=== PATIENT | male | born 1950 | race Caucasian/White ===

== ENCOUNTER 2023-10-13 17:29 | Inpatient (IN) | payer OTHER ==
[2023-10-13 17:57] VITALS: BMI 18.1
[2023-10-13 19:33] LABS: Hematocrit 22.4 % (38.8-50.0); Hemoglobin 7.1 g/dL (13.5-17.5); Platelet Count 245 10x3/uL (150-450)
[2023-10-13] MEDS ORDERED: Ondansetron PF 4 MG/2 ML Vial IVP PRN (19:34)
[2023-10-13 19:43] LABS: Iron 27 ug/dL (65-175); Iron Binding Capacity, Total 320 mcg/dL (261-462)
[2023-10-13] MEDS: Famotidine/PF 20 mg/2ml Vial SLOW IVP SCH (21:17)
[2023-10-13] MEDS: Terazosin HCl 1 MG CAP PO SCH (21:18)
[2023-10-13] MEDS: Atorvastatin Calcium 40 MG TAB PO SCH (21:44)
[2023-10-14 02:28] LABS: #Basophils 0.02 10x3/uL (0.0-0.2); #Eosinphils 0.14 10x3/uL (0.0-0.5); #Neutrophils 4.78 10x3/uL (1.5-8.4); %Basophils 0.3 % (0.0-2.0); %Lymphocytes 14.6 % (18.0-47.0); %Monocytes 14.3 % (0.0-10.0); %Neutrophils 68.4 % (40.0-75.0); Hematocrit 25.3 % (38.8-50.0); Hemoglobin 8.2 g/dL (13.5-17.5); Mean Corpuscular HGB CONC 32.4 g/dL (32.0-36.0); Mean Corpuscular Hemoglobin 28.9 pg (27.0-33.0); Mean Corpuscular Volume 89.1 fL (81.2-95.1); Mean Platelet Volume 8.7 fL (7.4-10.4); Platelet Count 210 10x3/uL (150-450); RBC Distribution Width 14.6 % (11.5-14.5); Red Blood Cell (RBC) Count 2.84 10x6/uL (4.32-5.72)
[2023-10-14 02:35] LABS: INR-International Normal Ratio 1.4; PTT 28.8 sec (22.0-33.0); Prothrombin Time 15.1 sec (9.5-12.1)
[2023-10-14 02:40] LABS: Anion Gap 13 mmol/L (10-20); BUN (Urea Nitrogen) 32 mg/dL (8.4-25.7); Calc. Creatinine Clearance 33 mL/min (70-130); Calcium 8.4 mg/dL (7.8-10.44); Carbon Dioxide 27 mmol/L (23-31); Chloride 101 mmol/L (98-107); Estimated GFR 46; Glucose 84 mg/dL (83-110); Potassium 4.7 mmol/L (3.5-5.1); Sodium 136 mmol/L (136-145)
[2023-10-14 06:16] LABS: Troponin I 0.026 ng/mL (< 0.028)
[2023-10-14] MEDS: Furosemide 20 MG TAB PO SCH (10:12)
[2023-10-14] MEDS: Loratadine 10 MG TAB PO SCH (10:12)
[2023-10-14 10:51] VITALS: BMI 18.1
[2023-10-14 11:46] LABS: Troponin I 0.018 ng/mL (< 0.028)
[2023-10-14] MEDS ORDERED: Ipratropium/Albuterol 3 ML NEB NEB PRN (12:39)
[2023-10-14] MEDS: Doxycycline 100 MG CAP PO SCH ×2 (13:32→21:51)
[2023-10-14 19:23] LABS: Hematocrit 27.6 % (38.8-50.0); Hemoglobin 8.9 g/dL (13.5-17.5); Platelet Count 247 10x3/uL (150-450)
[2023-10-14] MEDS: Famotidine/PF 20 mg/2ml Vial SLOW IVP SCH (21:51)
[2023-10-14 22:37] VITALS: BP 111/55; TEMP 97.9
== END 2023-10-14 21:45 | DRG 811 ==
LOC: EEVIPCON → CSHTELE 17:30 → OBSVTOIN 10-14 09:34
PROVIDERS: ADMIT Family Medicine; ATTEND Family Medicine
PROC: 30233N1 Transfusion of Nonautologous Red Blood Cells into Peripheral Vein, Percutaneous Approach (ICD-10-PCS; principal; 2023-10-13)
DX: D62 Acute posthemorrhagic anemia (principal); J18.9 Pneumonia, unspecified organism; I13.0 Hypertensive heart and chronic kidney disease with heart failure and stage 1 through stage 4 chronic kidney disease, or unspecified chronic kidney disease; J44.1 Chronic obstructive pulmonary disease with (acute) exacerbation; R00.1 Bradycardia, unspecified; I49.5 Sick sinus syndrome; E78.5 Hyperlipidemia, unspecified; I50.9 Heart failure, unspecified; N18.9 Chronic kidney disease, unspecified; Z98.890 Other specified postprocedural states; Z79.899 Other long term (current) drug therapy; Z79.82 Long term (current) use of aspirin; I48.91 Unspecified atrial fibrillation
CPT/HCPCS: 36415; 36430; 80048; 82728; 83540; 83550; 84484; 85025; 85610; 85730; 86850; 86900; 86901; 93005; 93010; 93306; 94762; P9016; S0028

== ENCOUNTER 2024-04-23 11:43 | Emergency (ER) | payer OTHER ==
[2024-04-23 12:15] LABS: #Basophils 0.02 10x3/uL (0.0-0.2); #Eosinophils 0.04 10x3/uL (0.0-0.5); #Neutrophils 5.79 10x3/uL (1.5-8.4); %Basophils 0.3 % (0.0-2.0); %Eosinophils 0.5 % (0.0-6.0); %Lymphocytes 13.3 % (18.0-47.0); %Monocytes 10.4 % (0.0-10.0); Hematocrit 27.9 % (38.8-50.0); Hemoglobin 8.7 g/dL (13.5-17.5); Mean Corpuscular HGB CONC 31.2 g/dL (32.0-36.0); Mean Corpuscular Volume 83.5 fL (81.2-95.1); Mean Platelet Volume 8.9 fL (7.4-10.4); Platelet Count 243 10x3/uL (150-450); RBC Distribution Width 16.8 % (11.5-14.5); Red Blood Cell (RBC) Count 3.34 10x6/uL (4.32-5.72); White Blood Cell (WBC) Count 7.7 10x3/uL (3.5-10.5)
[2024-04-23] MEDS ORDERED: Glucagon 1 MG/ML KIT ONE (12:22)
[2024-04-23 12:27] LABS: ALT (SGPT) 58 U/L (8-55); AST (SGOT) 45 U/L (5-34); Albumin 3.5 g/dL (3.4-4.8); Alkaline Phosphatase 86 U/L (40-110); Anion Gap 16 mmol/L (10-20); BUN (Urea Nitrogen) 56 mg/dL (8.4-25.7); Bilirubin, Total 0.5 mg/dL (0.2-1.2); Calc. Creatinine Clearance 0 mL/min (70-130); Calcium 8.9 mg/dL (7.8-10.44); Carbon Dioxide 20 mmol/L (23-31); Chloride 99 mmol/L (98-107); Estimated GFR 21; Globulin 3.4 g/dL (2.4-3.5); Glucose 83 mg/dL (83-110); Protein, Total 6.9 g/dL (5.8-8.1); Sodium 129 mmol/L (136-145)
[2024-04-23 12:31] LABS: Critical Call Chemistry NUR.JF4 @1230; Potassium 6.4 mmol/L (3.5-5.1)
[2024-04-23 12:33] LABS: Troponin I 0.014 ng/mL (< 0.028)
[2024-04-23] MEDS ORDERED: cefTRIAXone (ROCEPHIN) 2 GM VIAL ONE (12:38)
[2024-04-23] MEDS ORDERED: Insulin Regular, Human 100 UNIT/ML 10 ML VIAL ONE (12:38)
[2024-04-23] MEDS ORDERED: Calcium Chloride 1 GM/10 ML Abboject SYRINGE ONE (12:38)
[2024-04-23] MEDS ORDERED: Dextrose 50% Abboject 50 ML SYRINGE ONE (12:38)
[2024-04-23] MEDS ORDERED: Sodium Bicarb 50 MEQ/50 ML Abboject 8.4% SYRINGE ONE (12:38)
[2024-04-23 16:14] LABS: Bilirubin Neg (Negative); Blood, Urine 10 (Negative); Clarity Clear (Clear); Glucose, Urine (Dipstick) 100 mg/dL (Negative); Ketone, Urine Negative (Negative); Leukocyte Negative (Negative); Nitrite Negative (Negative); Protein, Urine (Dipstick) 15 mg/dl (Neg-Trace); Specific Gravity, Urine 1.015 (1.005-1.030); Urobilinogen Normal mg/dL (Less than 2)
[2024-04-23 17:12] LABS: CAUTI Indications for Culture Pelvic or flank pain; RBC/HPF 0-3 HPF (0-3); WBC/HPF 0-3 HPF (0-3)
[2024-04-23 17:14] LABS: Bacteria/HPF 2+ HPF (None Seen); Mucous/LPF 1+ LPF (<2+); Squamous Epithelial 0-3 HPF (0-3); Transitional Epithelial 0-3 HPF (None Seen)
[2024-04-23 17:17] LABS: Urine Culture Reflex No No
== END 2024-04-23 17:35 | disposition short-term general hospital (02) ==
LOC: CSHERS 11:43 → EEVIPCON 11:43 → CSHERS 17:35
DX: R00.1 Bradycardia, unspecified (principal); I13.0 Hypertensive heart and chronic kidney disease with heart failure and stage 1 through stage 4 chronic kidney disease, or unspecified chronic kidney disease; I50.9 Heart failure, unspecified; N18.9 Chronic kidney disease, unspecified; E87.5 Hyperkalemia; N17.9 Acute kidney failure, unspecified; J44.9 Chronic obstructive pulmonary disease, unspecified; I48.91 Unspecified atrial fibrillation; Z79.82 Long term (current) use of aspirin; Z79.899 Other long term (current) drug therapy
CPT/HCPCS: 36415; 71045; 80053; 81001; 83605; 83735; 83880; 84484; 85025; 87040; 87086; 93005; 96374; 96375; J0696; J1611; J1815; J7999

== ENCOUNTER 2024-05-01 04:01 | Emergency (ER) | payer OTHER | END 2024-05-01 04:53 | LOC: CSHERS 04:01 → EEVIPCON 04:01 → CSHERS 04:53 | DX: R06.02 Shortness of breath (principal); J44.9 Chronic obstructive pulmonary disease, unspecified; I48.91 Unspecified atrial fibrillation; I12.9 Hypertensive chronic kidney disease with stage 1 through stage 4 chronic kidney disease, or unspecified chronic kidney disease; N18.9 Chronic kidney disease, unspecified; Z79.01 Long term (current) use of anticoagulants; Z79.82 Long term (current) use of aspirin; Z79.899 Other long term (current) drug therapy | CPT/HCPCS: 99283 ==